=== PATIENT | female | born 1985 | race Caucasian/White ===

== ENCOUNTER 2021-08-22 19:33 | Emergency (ER) | payer OTHER ==
[~2021-08-22] VITALS: Ht 172.7 cm; Wt 113.4 kg
--- NOTE | 2021-08-22 20:01 | NUR ---
PT TAKEN TO CHAIR B VIA W/C.
[2021-08-22 20:04] VITALS: BP 150/116
--- NOTE | 2021-08-22 20:06 | NUR ---
Dr. Pruett examining patient.
[2021-08-22] MEDS ORDERED: ASPIRIN 325 MG TAB PO ONE (20:10)
[2021-08-22] MEDS ORDERED: NITROGLYCERIN 0.4 MG TAB SL ONE ×2 (20:10→21:43)
--- NOTE | 2021-08-22 20:43 | NUR ---
PT TAKEN TO XRAY
--- NOTE | 2021-08-22 20:51 | NUR ---
PT RETURN FROM XRAY
--- NOTE | 2021-08-22 21:58 | NUR ---
PT MOVED TO BED 14
[2021-08-22 22:20] LABS: BASOPHILS # (AUTO) 0.1 K/uL (0.00-0.22); BASOPHILS % (AUTO) 0.5 % (0.0-2.0); EOSINOPHILS % (AUTO) 0.2 % (0.0-4.0); HEMATOCRIT 36.6 % (36-48); HEMOGLOBIN 12.4 g/dL (12.0-16.0); LYMPHOCYTES # (AUTO) 3.1 K/uL (2.5-16.5); LYMPHOCYTES % (AUTO) 25.5 % (20.5-51.1); MEAN CORPUSCULAR HEMOGLOBIN 30 pg (27-31); MEAN CORPUSCULAR HGB CONC 34 g/dL (33-37); MEAN CORPUSCULAR VOLUME 88.6 fL (80-94); MONOCYTES # (AUTO) 0.6 K/uL (0.8-1.0); MONOCYTES % (AUTO) 5.2 % (1.7-9.3); NEUTROPHILS # (AUTO) 8.3 K/uL (1.8-7.7); NEUTROPHILS % (AUTO) 68.6 % (42.2-75.2); PLATELET COUNT (AUTO) 324 K/uL (140-450); RED BLOOD CELL COUNT(AUTO) 4.13 MIL/uL (4.20-5.40); RED CELL DISTRIBUTION WIDTH 14.2 % (11.6-13.7); WHITE BLOOD COUNT (AUTO) 12.1 K/uL (4.8-10.8)
[2021-08-22 22:51] LABS: PROTHROMBIN TIME 9.9 secs (10.8-13.4)
[2021-08-22 22:57] LABS: ALBUMIN 3.9 g/dL (3.4-5.0); ANION GAP 14.4 (8-16); CARBON DIOXIDE 27.2 mmol/L (21-32); CREATININE 0.9 mg/dL (0.6-1.3); POTASSIUM 3.6 mmol/L (3.5-5.1); TOTAL BILIRUBIN 0.2 mg/dL (0.0-1.0)
[2021-08-23] MEDS ORDERED: ONDANSETRON 4 MG/2 ML VIAL IVP ONE ×2 (00:35→04:00)
[2021-08-23] MEDS ORDERED: MORPHINE SULFATE 4 MG/ML SYR IVP ONE (00:35)
[2021-08-23] MEDS ORDERED: diphenhydrAMINE 50 MG/ML VIAL ONE (00:50)
[2021-08-23] MEDS ORDERED: diphenhydrAMINE 50 MG/ML VIAL IVP ONE ×2 (00:50→01:00)
--- NOTE | 2021-08-23 00:58 | NUR ---
Dr. Myers examining patient.
[2021-08-23] MEDS ORDERED: methylPREDNISolone SS 125 MG/2 ML VIAL IVP ONE (01:00)
[2021-08-23] MEDS ORDERED: ONDA-188 SL (03:57)
--- NOTE | 2021-08-23 04:44 | NUR ---
cleared for dc with RAMONE JACK
== END 2021-08-23 04:44 | disposition home or self-care (01) ==
LOC: MED 19:33
DX: R07.89 Other chest pain (principal)
CPT/HCPCS: 36415; 71045; 71275; 80053; 83880; 84484; 85025; 85379; 85610; 85730; 93005; 96374; 96375; 96376; 99285; J1200; J2270; J2405; J2930; Q9967